=== PATIENT | male | born 1985 | race Caucasian/White ===

== ENCOUNTER 2017-12-19 21:44 | Emergency (ER) | payer MEDICARE, MEDICAID ==
[~2017-12-19] VITALS: Ht 144.8 cm; Wt 40.5 kg
[2017-12-19] MEDS ORDERED: IBAN150T PO (21:54)
[2017-12-19] MEDS ORDERED: ZIPR20CA2 PO (21:54)
[2017-12-19] MEDS ORDERED: PROZ10 PO (21:54)
[2017-12-19] MEDS ORDERED: DDAV1 PO (21:54)
[2017-12-19] MEDS ORDERED: BUSP5TAB20 PO (21:54)
[2017-12-19 22:20] LABS: BASOPHILS % (AUTO) 0.2 % (0.0-2.0); EOSINOPHILS % (AUTO) 0.7 % (1.0-6.0); HEMATOCRIT 38.3 % (41-53); HEMOGLOBIN 13.2 g/dL (13.5-17.5); LYMPHOCYTES # (AUTO) 1.2 K/uL (1.0-4.8); MEAN CORPUSCULAR HEMOGLOBIN 28.5 pg (26.0-34.0); MEAN CORPUSCULAR HGB CONC 34.5 G/dL (31.0-37.0); MEAN CORPUSCULAR VOLUME 83 fL (80-100); MONOCYTES # (AUTO) 0.5 K/uL (0.1-1.0); MONOCYTES % (AUTO) 12.6 % (2.0-9.0); NEUTROPHILS # (AUTO) 2.5 K/uL (1.8-7.7); NEUTROPHILS % (AUTO) 58.5 % (40.0-70.0); PLATELET COUNT (AUTO) 165 K/uL (150-450); RED BLOOD CELL COUNT(AUTO) 4.64 MIL/uL (4.50-5.90); RED CELL DISTRIBUTION WIDTH 13.7 % (11.5-14.5)
[2017-12-19 22:28] LABS: ANION GAP 4 mmol/L (8-16); CARBON DIOXIDE 30 mmol/L (22-29); CHLORIDE 100 mmol/L (98-107); CREATININE 0.65 mg/dL (0.60-1.30); GLOMERULAR FILTR. RATE CALC > 60 mL/min (>60); GLUCOSE,RANDOM 88 mg/dL (70-110); POTASSIUM 4.1 mmol/L (3.5-5.1); SODIUM SERUM 134 mmol/L (136-145); UREA NITROGEN, BLOOD 10 mg/dL (7-18)
[2017-12-19 22:33] LABS: ALANINE AMINOTRANSFERASE 36 U/L (12-78); ALBUMIN 3.7 g/dL (3.4-5.0); ALKALINE PHOSPHATASE 82 U/L (46-116); ASPARTATE AMINOTRANSFERASE 20 U/L (15-37); BILIRUBIN,TOTAL 0.3 mg/dL (0.1-1.0); TOTAL PROTEIN, SERUM 7.4 g/dL (6.4-8.2)
[2017-12-19] MEDS ORDERED: LORazepam 1 MG TABLET PO ONE (23:15)
[2017-12-19] MEDS ORDERED: BusPIRone HCL 5 MG TABLET PO ONE (23:15)
[2017-12-19] MEDS ORDERED: LORazepam 2 MG/ML VIAL IM ONE (23:15)
[2017-12-19 23:50] VITALS: BP 122/73
== END 2017-12-20 00:32 | disposition home or self-care (01) ==
LOC: EMS 21:46
DX: F41.9 Anxiety disorder, unspecified (principal); R62.50 Unspecified lack of expected normal physiological development in childhood; Q87.1 Congenital malformation syndromes predominantly associated with short stature; Z79.899 Other long term (current) drug therapy
CPT/HCPCS: 36415; 80053; 85025; 99285; G0480